=== PATIENT | male | born 1995 | race Asian ===

== ENCOUNTER 2017-04-05 01:57 | Emergency (ER) | payer OTHER ==
[~2017-04-05] VITALS: Ht 185.4 cm; Wt 81.6 kg
[2017-04-05 01:59] VITALS: BP_SYST 100
[2017-04-05] MEDS ORDERED: ONDANSETRON 4 MG ODT TAB PO ONE (02:15)
[2017-04-05 02:58] VITALS: BP_SYST 110
== END 2017-04-05 02:58 | disposition home or self-care (01) ==
LOC: SED 01:57
DX: F10.129 Alcohol abuse with intoxication, unspecified (principal); R11.2 Nausea with vomiting, unspecified; M25.572 Pain in left ankle and joints of left foot
CPT/HCPCS: 73610; 99284; Q0162